=== PATIENT | male | born 1960 | race Caucasian/White ===

== ENCOUNTER 2016-03-24 11:28 | Emergency (ER) | payer BC, OTHER ==
[~2016-03-24] VITALS: Ht 185.4 cm; Wt 104.5 kg
[~2016-03-24 11:28] MED LIST: RIVA15TA PO
[2016-03-24 11:31] VITALS: Ht 185.4 cm; Wt 104.5 kg
[2016-03-24] MEDS ORDERED: RIVA20TA PO (12:33)
[2016-03-24] MEDS ORDERED: OMEP10SU PO (12:33)
[2016-03-24 12:34] LABS: BASOPHILS % 0.3 % (0.0-2.0); EOSINOPHILS # 0.2 10^3/ul (0.0-0.5); EOSINOPHILS % 1.8 % (0.0-7.0); LYMPHOCYTES # 1.2 10^3/ul (0.8-2.9); LYMPHOCYTES % 12.3 % (15.0-51.0); MEAN CORPUSCULAR HEMOGLOBIN 31.1 pg (29.0-33.0); MEAN CORPUSCULAR HGB CONC 34.8 g/dl (32.0-37.0); MEAN CORPUSCULAR VOLUME 89.4 fl (82.0-101.0); MEAN PLATELET VOLUME 6.5 fl (7.4-10.4); MONOCYTE # 0.7 10^3/ul (0.3-0.9); MONOCYTES % 7.2 % (0.0-11.0); NEUTROPHIL # 7.7 10^3/ul (1.6-7.5); NEUTROPHILS % 78.4 % (39.0-77.0); PLATELET COUNT 224 10^3/UL (140-440); RED BLOOD COUNT 5.15 10^6/ul (4.70-6.10); RED CELL DISTRIBUTION WIDTH 13.3 % (11.5-14.5); UNCORRECTED WBC 9.9 10^3/ul (4.8-10.8); WHITE BLOOD COUNT 9.9 10^3/ul (4.8-10.8)
[2016-03-24 12:38] LABS: CONDITION 1
[2016-03-24 12:45] LABS: ALBUMIN 4.4 g/dl (3.3-4.9); CHLORIDE 105 mmol/L (97-110); POTASSIUM 4.2 mmol/L (3.5-5.1); SODIUM 145 mmol/L (135-144)
[2016-03-24 12:47] LABS: CREATININE 1.07 mg/dl (0.61-1.24)
[2016-03-24 12:48] LABS: ALANINE AMINOTRANSFERASE 34 IU/L (13-69); ALBUMIN/GLOBULIN RATIO 1.33; ALKALINE PHOSPHATASE 81 IU/L (42-121); ANION GAP 20 (8-16); ASPARTATE AMINO TRANSFERASE 22 IU/L (15-46); BILIRUBIN,INDIRECT 0.8 mg/dl (0-1.1); BILIRUBIN,TOTAL 0.8 mg/dl (0.2-1.3); BLOOD UREA NITROGEN 14 mg/dl (7-20); CARBON DIOXIDE 24 mmol/L (21-31); GLUCOSE 94 mg/dl (70-220); TOTAL PROTEIN 7.7 g/dl (6.1-8.1)
[2016-03-24 12:49] LABS: CALCIUM 9.3 mg/dl (8.4-10.2)
[2016-03-24 12:57] LABS: B-TYPE NATRIURETIC PEPTIDE 155 PG/ML (0-125)
[2016-03-24 13:01] LABS: INR 1.22; PROTIME 15.5 Sec (12.2-14.2); PT RATIO 1.2; TROPONIN-I < 0.010 ng/ml (0.00-0.12)
[2016-03-24] MEDS ORDERED: SOD CHLORIDE 0.9% 100 ML ONE (13:07)
[2016-03-24] MEDS ORDERED: IOHEXOL 100 ML ONE (13:07)
[2016-03-24] MEDS ORDERED: IOHEXOL 350MG/ML 50 ML BTL ONE (13:07)
--- NOTE | 2016-03-24 13:31 | RADRPT ---
PROCEDURE: CTA Chest and pulmonary angiogram. CLINICAL INDICATION: Chest pain and shortness of breath. History of recent foot surgery. TECHNIQUE: CT scan of the chest and CT pulmonary angiogram was performed on a multidetector high-r [employer] CT scanner. High-resolution thin slice coronal and sagittal imaging was obtained from the axial source images. 3-D volumetric rendered post processing was performed as well. The patient w as examined following the uncomplicated intravenous administration of 100 cc of Omnipaque-350. The i mages were reviewed on a PACS workstation. The total exam CTDI equals 42.25, 20.03 mGy, and the tota l exam DLP equals 795.01 mGy-cm. One or more of the following dose reduction techniques were used: - Automated exposure control. - Adjustment of the mA and/or kV according to patient size. - Use of iterative reconstruction technique. COMPARISON: CT scan chest dated 11/13/2015 FINDINGS: CT chest: The lungs are clear. No focal opacification, effusion, pneumothorax, edema, or nodules are seen. T he central tracheobronchial tree is clear. The mediastinum is unremarkable without evidence for mass or lymphadenopathy. The vascular structur es of the mediastinum are normal in course and caliber. The heart size is normal without pericardia l thickening or effusion. The axillary, subpectoral, and supraclavicular regions are unremarkable. The surrounding chest wall is unremarkable. Imaging obtained through the upper abdomen is equally u nremarkable. The adrenal glands are symmetrically normal. The osseous structures are remarkable fo r minimal degenerative spondylosis of the spine. CT pulmonary angiogram: No thrombus, clot, filling defect, or pulmonary web is identified. The pulmonary arteries are josemanuel l in caliber and morphology. No filling defect is present to suggest pulmonary embolism. There is no evidence for pulmonary arterial hypertension. Of note, this patient had significant bilateral pul monary emboli at the time of the previous CT scan of the chest. This is now completely resolved. IMPRESSION: 1. Negative CT pulmonary angiogram. No evidence for pulmonary embolism. 2. Equally unremarkable CT scan of the chest. RPTAT: HMJB .Alf Camacho MD, Date Time Electronically viewed and signed by .Alf Camacho MD, MD on 03/24/2016 13:31 .B/
[2016-03-24 13:36] LABS: D-DIMER < 220.00 ng/ml (<460)
[2016-03-24] MEDS ORDERED: PRED20TA PO (14:25)
[2016-03-24] MEDS ORDERED: ALBU8.5H3 INH (14:25)
[2016-03-24] MEDS ORDERED: AZIT250T94 PO (14:25)
--- NOTE | 2016-03-24 14:28 | ERD ---
ER Documentation Chief Complaint Date/Time DATE: 03/24/16 TIME: 14:25 Chief Complaint Sent by Dr Green for eval Hx of PE HPI This pleasant 56-year-old male with a history of DVT and pulmonary embolisms currently taking Xarelto. The patient has had a cough with green productive sputum for the past few days. He is having some shortness of breath on occasion and he is worried he has had some pulmonary embolisms. Patient has seen his primary care physician today and called and spoke with me and sent him here for evaluation to make sure he does not have any more pulmonary embolisms. The patient is not having any chest pain no palpitations no tachypnea no fever no hemoptysis no exertional dyspnea ROS All systems reviewed and are negative except as per history of present illness. Medications Home Meds Active Scripts Azithromycin* (Zithromax*) 250 Mg Tablet, 250 MG PO .ZPACK DIRECTED, #6 TAB TAKE 500 MG (2 TABS) THE FIRST DAY THEN 250 MG (1 TAB) DAYS 2-5 Prov:VALENTE GOODMAN DO 03/24/16 Albuterol Sulfate* (Proair HFA*) 8.5 Gm Hfa.aer.ad, 2 PUFF INH Q4, #1 INHALER Prov:VALENTE GOODMAN DO 03/24/16 Prednisone* (Prednisone*) 20 Mg Tab, 60 MG PO DAILY for 5 Days, TAB Prov:VALENTE GOODMAN DO 03/24/16 Reported Medications Omeprazole* (Prilosec*) 10 Mg Suspdr.pkt, 10 MG PO AC BREAKFAST, PKT 03/24/16 Rivaroxaban* (Xarelto*) 20 Mg Tablet, 20 MG PO WITH DINNER, TAB 03/24/16 Discontinued Scripts Rivaroxaban* (Xarelto*) 15 Mg Tablet, 15 MG PO BID WITH MEALS for 21 Days, TAB at end of 3 weeks change to 20 mg once a day for 6 months Prov:REBEL MILLER MD 11/16/15 Allergies Allergies: Coded Allergies: No Known Allergy (Unverified , 11/12/15) VERIFIED 11/12/15 PMhx/Soc History of Surgery: Yes (SX 11/07/15 LEFT ANKLE ORIF) Hx Neurological Disorder: No Hx Respiratory Disorders: No Hx Cardiac Disorders: No Hx Psychiatric Problems: No Hx Miscellaneous Medical Probl: Yes (hx PE) Hx Alcohol Use: No Hx Substance Use: No Hx Tobacco Use: No Smoking Status: Never smoker FmHx Family History: No coronary disease Physical Exam Vitals Vital Signs Date Time Temp Pulse Resp B/P Pulse Ox O2 Delivery O2 Flow Rate FiO2 03/24/16 12:14 Nasal Cannula 03/24/16 11:31 98.0 86 20 121/80 94 Physical Exam Const: Well-developed, well-nourished Head: Atraumatic, normocephalic Eyes: Normal Conjunctiva, PERRLA, EOMI, normal sclera, no nystagmus ENT: Normal External Ears, Nose and Mouth, moist mucus membranes. Neck: Full range of motion. No meningismus, no lymphadenopathy. Resp: Clear to auscultation bilaterally, no wheezing, rhonchi, rales Cardio: Regular rate and rhythm, no murmurs, S1 S2 present Abd: Soft, non tender x 4, non distended. Normal bowel sounds, no guarding or rebound, no pulsitile abdominal masses or bruits Skin: No petechiae or rashes, no ecchymosis , no maculopapular rash Back: No midline or flank tenderness Ext: No cyanosis, or edema, FROM x 4, normal inspection, neurovascularly intact x 4 Neur: Awake and alert, STR 5/5 x 4, sensation intact x 4, no focal findings, cerebellum intact Psych: Normal Mood and Affect Result Diagram: 03/24/16 1212 03/24/16 1212 Results 24 hrs Laboratory Tests Test 03/24/16 12:12 Activated Partial Thromboplast Time 31.0Sec Alanine Aminotransferase (ALT/SGPT) 34IU/L Albumin 4.4g/dl Albumin/Globulin Ratio 1.33 Alkaline Phosphatase 81IU/L Anion Gap 20 Aspartate Amino Transf (AST/SGOT) 22IU/L B-Type Natriuretic Peptide 155PG/ML Basophils # 0.010^3/ul Basophils % 0.3% Blood Morphology Comment Blood Urea Nitrogen 14mg/dl Calcium Level 9.3mg/dl Carbon Dioxide Level 24mmol/L Chloride Level 105mmol/L Creatinine 1.07mg/dl D-Dimer < 220.00ng/ml D-Dimer Comment Direct Bilirubin 0.00mg/dl Eosinophils # 0.210^3/ul Eosinophils % 1.8% Globulin 3.30g/dl Glucose Level 94mg/dl Hematocrit 46.0% Hemoglobin 16.0g/dl INR International Normalized Ratio 1.22 Indirect Bilirubin 0.8mg/dl Lymphocytes # 1.210^3/ul Lymphocytes % 12.3% Mean Corpuscular Hemoglobin 31.1pg Mean Corpuscular Hemoglobin Concent 34.8g/dl Mean Corpuscular Volume 89.4fl Mean Platelet Volume 6.5fl Monocytes # 0.710^3/ul Monocytes % 7.2% Neutrophils # 7.710^3/ul Neutrophils % 78.4% Nucleated Red Blood Cells # 0.010^3/ul Nucleated Red Blood Cells % 0.0/100WBC Platelet Count 76022^3/UL Potassium Level 4.2mmol/L Prothrombin Time 15.5Sec Prothrombin Time Ratio 1.2 Red Blood Count 5.1510^6/ul Red Cell Distribution Width 13.3% Sodium Level 145mmol/L Total Bilirubin 0.8mg/dl Total Protein 7.7g/dl Troponin I < 0.010ng/ml White Blood Count 9.910^3/ul Current Medications Medications (Trade) Dose Ordered Sig/Dyan Route PRN Reason Start Time Stop Time Status Last Admin Dose Admin IV Flush 10 ml 10 ml STK-MED ONCE .ROUTE 03/24/16 13:07 03/24/16 13:08 DC 03/24/16 13:24 Sodium Chloride 100 ml @ ud STK-MED ONCE .ROUTE 03/24/16 13:07 03/24/16 13:08 DC 03/24/16 13:25 Iohexol (Omnipaque) 100 ml @ ud STK-MED ONCE .ROUTE 03/24/16 13:07 03/24/16 13:08 DC 03/24/16 13:25 Iohexol (Omnipaque 350mg/ ml) 50 ml STK-MED ONCE .ROUTE 03/24/16 13:07 03/24/16 13:08 DC 03/24/16 13:26 Procedures/MDM PROCEDURE: CTA Chest and pulmonary angiogram. CLINICAL INDICATION: Chest pain and shortness of breath. History of recent foot surgery. TECHNIQUE: CT scan of the chest and CT pulmonary angiogram was performed on a multidetector high-resolution CT scanner. High-resolution thin slice coronal and sagittal imaging was obtained from the axial source images. 3-D volumetric rendered post processing was performed as well. The patient was examined following the uncomplicated intravenous administration of 100 cc of Omnipaque- 350. The images were reviewed on a PACS workstation. The total exam CTDI equals 42.25, 20.03 mGy, and the total exam DLP equals 795.01 mGy-cm. One or more of the following dose reduction techniques were used: - Automated exposure control. - Adjustment of the mA and/or kV according to patient size. - Use of iterative reconstruction technique. COMPARISON: CT scan chest dated 11/13/2015 FINDINGS: CT chest: The lungs are clear. No focal opacification, effusion, pneumothorax, edema, or nodules are seen. The central tracheobronchial tree is clear. The mediastinum is unremarkable without evidence for mass or lymphadenopathy. The vascular structures of the mediastinum are normal in course and caliber. The heart size is normal without pericardial thickening or effusion. The axillary, subpectoral, and supraclavicular regions are unremarkable. The surrounding chest wall is unremarkable. Imaging obtained through the upper abdomen is equally unremarkable. The adrenal glands are symmetrically normal. The osseous structures are remarkable for minimal degenerative spondylosis of the spine. CT pulmonary angiogram: No thrombus, clot, filling defect, or pulmonary web is identified. The pulmonary arteries are normal in caliber and morphology. No filling defect is present to suggest pulmonary embolism. There is no evidence for pulmonary arterial hypertension. Of note, this patient had significant bilateral pulmonary emboli at the time of the previous CT scan of the chest. This is now completely resolved. IMPRESSION: 1. Negative CT pulmonary angiogram. No evidence for pulmonary embolism. 2. Equally unremarkable CT scan of the chest. RPTAT: HMJB .Alf Camacho MD, Date Time Electronically viewed and signed by .Alf Camacho MD, MD on 03/24/2016 13:31 .B/ CC: VALENTE GOODMAN DO Patient refused breathing treatments No evidence of pulmonary embolism with evidence of cardiac etiology at this point. I feel this is a clinical picture more consistent with bronchitis/upper respiratory illness. I have paged his primary care physician several times but not getting a call back. We will discharge her with Zithromax, prednisone, albuterol inhaler Departure Diagnosis: Primary Impression: Bronchitis Condition: Stable Patient Instructions: Bronchitis, Antiobiotic Treatment (Adult) VALENTE GOODMAN DO Mar 24, 2016 14:28
== END 2016-03-24 15:30 | disposition home or self-care (01) ==
LOC: E/R 11:28
DX: J20.9 Acute bronchitis, unspecified (principal); R06.02 Shortness of breath; Z79.01 Long term (current) use of anticoagulants
CPT/HCPCS: 36415; 71275; 80053; 83880; 84484; 85025; 85378; 85610; 85730; 93005; 99285; Q9967